=== PATIENT | female | born 1960 | race Caucasian/White ===

== ENCOUNTER 2024-06-03 10:14 | Day surgery (SDC) | payer OTHER ==
[~2024-06-03] VITALS: Ht 152.4 cm; Wt 63.5 kg
[2024-06-03] MEDS ORDERED: LIDOCAINE 2% 100 MG/5 ML UJET TP ONE (12:31)
[2024-06-03] MEDS ORDERED: fentaNYL citrate 0.05 MG/ML VIAL ONE (12:31)
[2024-06-03] MEDS ORDERED: MIDAZOLAM 5 MG/5 ML VIAL ONE (13:17)
[2024-06-03] MEDS: MIDAZOLAM 2 MG/2 ML VIAL IVP ONE (13:20)
[2024-06-03] MEDS: fentaNYL citrate 0.05 MG/ML VIAL IVP ONE (13:21)
== END 2024-06-03 14:50 | disposition home or self-care (01) ==
LOC: MDS 10:14 → MMU 10:15 → MDS 14:50
PROVIDERS: ATTEND Internal Medicine Gastroenterology
DX: K59.00 Constipation, unspecified (principal); R14.0 Abdominal distension (gaseous); I10 Essential (primary) hypertension; Z87.442 Personal history of urinary calculi; Z98.890 Other specified postprocedural states; Z79.899 Other long term (current) drug therapy
CPT/HCPCS: 45378; J2250; J3010